=== PATIENT | female | born 1970 | race Caucasian/White ===

== ENCOUNTER 2019-03-23 14:40 | Emergency (ER) | payer SELFPAY ==
[~2019-03-23] VITALS: Ht 170.2 cm; Wt 104.5 kg
[2019-03-23 14:41] VITALS: BP 149/93
[2019-03-23] MEDS ORDERED: ACET-66 PO (14:41)
[2019-03-23] MEDS: DEXAMETHASONE 4 MG TABLET PO ONE (16:10)
== END 2019-03-23 16:37 | disposition home or self-care (01) ==
LOC: EMS 14:43
DX: K08.89 Other specified disorders of teeth and supporting structures (principal); F15.90 Other stimulant use, unspecified, uncomplicated; F10.10 Alcohol abuse, uncomplicated
CPT/HCPCS: 99283; J8540